=== PATIENT | male | born 1950 | race Caucasian/White ===

== ENCOUNTER → 2017-11-26 | Outpatient (CLI) | payer MEDICARE, OTHER ==
[~2017-11-26] VITALS: Ht 172.8 cm; Wt 111.0 kg
[2017-11-26] VITALS (13 sets, daily range): BP systolic 117–136; BP diastolic 62–77; PULSE 83–103
[~2017-11-26] MED LIST: ALDACTONE 25MG25 M1 PO; ASPIR-LOW81 MG PO; ASPIRIN E.C. 8181 MG PO; CLOPIDOGREL PO; COLACE 100100 MG/CAP PO; COZAAR 50MG50 MG/TAB PO; CYMBALTA 60MG60 MG PO; FLOMAX 0.40.4 MG/CAP PO; FOLIC ACID 11 MG/TA1 PO; GLUCOPHAGE850 MG/TAB PO; GLUCOTROL 5M5 MG/TAB PO; HCTZ 25MG TAB25 MG PO; K-DUR 2020 MEQ PO; LASIX 80MG TABL80 MG PO; LIPITOR 80MG80 MG PO; LISINOPRIL20 MG PO; METHOCARBAMOL500 MG PO; NAPROXEN EC500 MG PO; NASONEX SPRAY17 GM NS; NATURAL IRON65 MG; NATURAL IRON65 MG PO; PERCOCET 325 MG1 TA2 PO; PLAVIX 75MG TAB75 MG PO; PRIL40 PO; PRILOSEC 20MG20 MG PO; TOPAMAX 25MG25 M1 PO; VITAMIN B COMPL1 SGL PO; VYTORIN 10 MG-81 TAB PO; VYTORIN PO
== END ==
LOC: COL.RAD 08:46
DX: K74.60 Unspecified cirrhosis of liver (principal); D50.9 Iron deficiency anemia, unspecified

== ENCOUNTER → 2018-01-30 | Outpatient (CLI) | payer MEDICARE, OTHER ==
[~2018-01-30] VITALS: Ht 167.6 cm; Wt 110.3 kg
[~2018-01-30] MED LIST changes: +ASPIRIN 32325 MG/TAB PO; +NEURONTIN100 MG/CAP PO
[2018-01-30 11:48] VITALS: BP 120/63; PULSE 92
[2018-01-30 13:38] VITALS: BP 122/67; PULSE 82
== END ==
LOC: COL.RAD 11:34
DX: K74.60 Unspecified cirrhosis of liver (principal)

== ENCOUNTER 2018-03-29 12:52 | Outpatient (CLI) | payer MEDICARE, OTHER ==
[~2018-03-29] VITALS: Ht 172.7 cm; Wt 115.7 kg
[2018-03-29 13:07] VITALS: BP 91/54; PULSE 90
[2018-03-29 18:02] VITALS: BP 107/57; PULSE 75; TEMP 98.2
[2018-03-29 18:47] LABS: ALBUMIN 3.9 gm/dL (3.5-5.0); BILIRUBIN,TOTAL 0.6 mg/dL (0.0-1.0); CALCIUM 8.8 mg/dL (8.4-10.2); CREATININE, serum 1.1 mg/dL (0.66-1.25); POTASSIUM 4.1 mmol/L (3.4-5.0); TOTAL PROTEIN 7.7 gm/dL (6.4-8.2)
== END 2018-03-29 20:30 | disposition home or self-care (01) ==
LOC: COL.RAD 12:52
PROVIDERS: Physician Assistant
DX: K74.60 Unspecified cirrhosis of liver (principal)
CPT/HCPCS: P9047

== ENCOUNTER 2018-05-17 12:19 | Outpatient (CLI) | payer MEDICARE, OTHER ==
[~2018-05-17] VITALS: Ht 172.7 cm; Wt 115.8 kg
[2018-05-17 12:51] VITALS: BP 101/54; PULSE 105
[2018-05-17 14:50] VITALS: BP 104/54; PULSE 79; TEMP 98.2
== END 2018-05-17 16:15 | disposition home or self-care (01) ==
LOC: COL.RAD 12:19
DX: K74.60 Unspecified cirrhosis of liver (principal)
CPT/HCPCS: P9047

== ENCOUNTER 2018-05-29 11:56 | Outpatient (CLI) | payer MEDICARE, OTHER ==
[~2018-05-29] VITALS: Ht 172.7 cm; Wt 105.8 kg
[2018-05-29 12:21] VITALS: BP 100/63; PULSE 85
[2018-05-29 14:30] VITALS: BP 95/46; PULSE 75
[2018-05-29 16:00] VITALS: BP 95/46; PULSE 78
== END 2018-05-29 17:43 | disposition home or self-care (01) ==
LOC: COL.RAD 11:56
DX: K74.69 Other cirrhosis of liver (principal)
CPT/HCPCS: P9047

== ENCOUNTER 2018-06-26 09:07 | Outpatient (CLI) | payer MEDICARE, OTHER ==
[~2018-06-26] VITALS: Ht 172.7 cm; Wt 106.7 kg
[2018-06-26] MEDS ORDERED: L-CARNITINE250 M1 PO (09:27)
[2018-06-26 09:37] VITALS: BP 135/75; PULSE 100
[2018-06-26 12:33] VITALS: BP 120/66; PULSE 83; TEMP 98.3
== END 2018-06-26 15:15 | disposition home or self-care (01) ==
LOC: COL.RAD 09:07
DX: K74.60 Unspecified cirrhosis of liver (principal)
CPT/HCPCS: P9047

== ENCOUNTER 2018-07-16 13:46 | Outpatient (CLI) | payer MEDICARE, OTHER ==
[~2018-07-16] VITALS: Ht 172.7 cm; Wt 104.2 kg
[~2018-07-16 13:46] MED LIST changes: +L-CARNITINE250 M1 PO
[2018-07-16 13:57] VITALS: BP 130/80; PULSE 96
[2018-07-16] MEDS ORDERED: PAXIL 10MG10 MG PO (13:57)
[2018-07-16 16:00] VITALS: BP 122/55; PULSE 88; TEMP 98.5
== END 2018-07-16 18:40 | disposition home or self-care (01) ==
LOC: COL.RAD 13:46
DX: K74.60 Unspecified cirrhosis of liver (principal)
CPT/HCPCS: P9047

== ENCOUNTER 2018-08-05 15:03 | Outpatient (CLI) | payer MEDICARE, OTHER ==
[~2018-08-05] VITALS: Ht 172.7 cm; Wt 101.9 kg
[~2018-08-05 15:03] MED LIST changes: +PAXIL 10MG10 MG PO
[2018-08-05 15:27] VITALS: BP 142/77; PULSE 97
[2018-08-05 17:21] VITALS: BP 123/61; PULSE 88; TEMP 98.4
--- NOTE | 2018-08-05 20:09 | NUR ---
INT discontinued intact.
== END 2018-08-05 20:09 | disposition home or self-care (01) ==
LOC: COL.RAD 15:03
DX: R18.8 Other ascites (principal); R10.9 Unspecified abdominal pain; K74.60 Unspecified cirrhosis of liver; D64.9 Anemia, unspecified
CPT/HCPCS: P9047

== ENCOUNTER 2018-08-20 12:07 | Outpatient (CLI) | payer MEDICARE, OTHER ==
--- NOTE | 2018-08-20 15:00 | NUR ---
pT ARRIVED FROM [facility]ADIOLOGY FOR ALBUMIN INFUSION.OBSERVED ALERT,ORIENTATED X3,RESPIRATIONS EVEN AND UNLABORED.
[2018-08-20 15:12] VITALS: BP 123/63; PULSE 76; TEMP 98.2
== END 2018-08-20 17:36 | disposition home or self-care (01) ==
LOC: COL.RAD 12:07
DX: K74.60 Unspecified cirrhosis of liver (principal); D64.9 Anemia, unspecified; K82.8 Other specified diseases of gallbladder
CPT/HCPCS: P9047

== ENCOUNTER 2018-09-12 12:13 | Outpatient (CLI) | payer MEDICARE, OTHER ==
[~2018-09-12] VITALS: Ht 172.7 cm; Wt 95.5 kg
[2018-09-12 13:55] VITALS: BP 113/70; PULSE 79; TEMP 97.6
== END 2018-09-12 16:35 | disposition home or self-care (01) ==
LOC: COL.RAD 12:13
DX: K74.60 Unspecified cirrhosis of liver (principal); D64.9 Anemia, unspecified
CPT/HCPCS: P9047

== ENCOUNTER 2019-01-28 11:47 | Outpatient (CLI) | payer MEDICARE, OTHER ==
[~2019-01-28] VITALS: Ht 172.7 cm; Wt 90.9 kg
[2019-01-28] MEDS ORDERED: VTAMINC250TA (12:00)
[2019-01-28] MEDS ORDERED: KEPPRA1000 MG PO (12:01)
[2019-01-28] MEDS ORDERED: XIFAXAN550 MG PO (12:02)
[2019-01-28] MEDS ORDERED: ENULOSE10 GM/151 PO (12:04)
[2019-01-28] MEDS ORDERED: MASON NATURAL2000 IU PO (12:05)
[2019-01-28 12:07] VITALS: BP 136/83; PULSE 76
[2019-01-28 13:05] VITALS: BP 114/60; PULSE 68; TEMP 97.9
== END 2019-01-28 14:53 | disposition home or self-care (01) ==
LOC: COL.RAD 11:47
DX: K74.60 Unspecified cirrhosis of liver (principal); D64.9 Anemia, unspecified
CPT/HCPCS: P9047

== ENCOUNTER 2019-02-19 10:00 | Outpatient (RCR) | payer MEDICARE, OTHER ==
[~2019-02-19 10:00] MED LIST changes: +ENULOSE10 GM/151 PO; +KEPPRA1000 MG PO; +MASON NATURAL2000 IU PO; +VTAMINC250TA; +XIFAXAN550 MG PO
== END 2019-02-25 15:17 | disposition home or self-care (01) ==
LOC: WSPT 10:00
DX: G93.40 Encephalopathy, unspecified (principal); R56.9 Unspecified convulsions; R47.01 Aphasia; S06.5X0S Traumatic subdural hemorrhage without loss of consciousness, sequela

== ENCOUNTER → 2019-09-12 | Outpatient (CLI) | payer MEDICARE, OTHER | LOC: COL.RAD 07:58 | DX: K74.60 Unspecified cirrhosis of liver (principal) ==

== ENCOUNTER 2020-03-17 10:04 | Day surgery (SDC) | payer MEDICARE, OTHER ==
[~2020-03-17] VITALS: Ht 172.7 cm; Wt 84.5 kg
[~2020-03-17 10:04] MED LIST changes: -NEURONTIN100 MG/CAP PO; +NEURONTIN300 MG/CAP PO; +VITAMIN C500 MG PO; -VTAMINC250TA
[2020-03-17] MEDS ORDERED: LEXAPRO 10MG10 MG PO (11:10)
[2020-03-17] MEDS ORDERED: MELATONIN5 M1 PO (11:13)
[2020-03-17] MEDS ORDERED: SEPTRA DS 8001 TAB PO (11:14)
[2020-03-17] MEDS ORDERED: ZTLIDO1 EACH TP (11:14)
[2020-03-17] MEDS ORDERED: ATIVAN 0.50.5 MG/TAB PO (11:15)
[2020-03-17] MEDS ORDERED: SANDOSTATI100 MCG/ML IJ (11:25)
[2020-03-17] MEDS ORDERED: TYLENOL PM EXTR1 TA1 PO (11:25)
[2020-03-17] MEDS ORDERED: ZOFRAN 4MG T4 MG/TAB PO (11:26)
[2020-03-17] MEDS ORDERED: ROXANOL 20MG20 MG/ML PO (11:26)
[2020-03-17 11:29] VITALS: BP 113/8; PULSE 61; TEMP 98.6
[2020-03-17 11:50] VITALS: BP 96/62; PULSE 57; TEMP 97.7
--- NOTE | 2020-03-17 11:50 | NUR ---
Pt to [facility] via cart. Pt drowsy, but awake. Pt denies pain or nauesea. Pt ambulates to recliner with stand by assistance. Warm blanket given. in room. Pudding and water provided per pt request. Will continue to monitor. Call light within reach.
[2020-03-17 12:05] VITALS: BP 105/68; PULSE 55
--- NOTE | 2020-03-17 12:05 | NUR ---
Pt dozing on and off. Denies pain or nausea. Tolerating food and fluids without difficulties.
[2020-03-17 12:20] VITALS: BP 115/71; PULSE 54
--- NOTE | 2020-03-17 12:20 | NUR ---
Discharge instructions reviewed. Pt voices understanding. IV site discontinued with all parts intact. Pt up to dress. Call light within reach.
--- NOTE | 2020-03-17 13:00 | NUR ---
Pt escorted to private car via wheel chair. Pt accompanied home by his .
== END 2020-03-17 13:00 | disposition home or self-care (01) ==
LOC: SDCO 10:04
DX: K31.7 Polyp of stomach and duodenum (principal); K29.70 Gastritis, unspecified, without bleeding; K31.9 Disease of stomach and duodenum, unspecified; K74.60 Unspecified cirrhosis of liver; K72.90 Hepatic failure, unspecified without coma; R18.8 Other ascites; K65.2 Spontaneous bacterial peritonitis; D50.9 Iron deficiency anemia, unspecified; N28.9 Disorder of kidney and ureter, unspecified; K76.6 Portal hypertension; K31.89 Other diseases of stomach and duodenum; E11.9 Type 2 diabetes mellitus without complications; K44.9 Diaphragmatic hernia without obstruction or gangrene; F41.9 Anxiety disorder, unspecified; Z79.82 Long term (current) use of aspirin; Z87.891 Personal history of nicotine dependence; Z79.899 Other long term (current) drug therapy
CPT/HCPCS: J2704; J7030

== ENCOUNTER → 2020-09-01 | Outpatient (CLI) | payer MEDICARE, OTHER ==
[~2020-09-01] MED LIST changes: +ATIVAN 0.50.5 MG/TAB PO; +LEXAPRO 10MG10 MG PO; +MELATONIN5 M1 PO; +ROXANOL 20MG20 MG/ML PO; +SANDOSTATI100 MCG/ML IJ; +SEPTRA DS 8001 TAB PO; +TYLENOL PM EXTR1 TA1 PO; +ZOFRAN 4MG T4 MG/TAB PO; +ZTLIDO1 EACH TP
== END ==
LOC: EDSTATUS 09:00 → SDCO 09:00 → COL.LAB 12:00
DX: U07.1 COVID-19 (principal); K74.60 Unspecified cirrhosis of liver; K72.90 Hepatic failure, unspecified without coma; D64.9 Anemia, unspecified